=== PATIENT | male | born 2000 | race Caucasian/White ===

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

== ENCOUNTER 2022-08-15 09:30 | Emergency (ER) | payer OTHER, SELFPAY ==
[2022-08-15 09:41] VITALS: BP 147/87; PULSE 77; RESP 16; TEMP 36.3; O2SAT 98
--- NOTE | 2022-08-15 09:44 | ED.MALEGU ---
HPI - Male Genitourinary General Chief complaint: Urogenital-Male Stated complaint: Polyuria, dysuria, scant urination Time Seen by Provider: 08/15/22 10:00 Source: patient and RN notes reviewed Mode of arrival: ambulatory Limitations: no limitations History of Present Illness HPI Narrative: 21 year old male presents with concern for urinary frequency, dysuria, and decreased urine amount. He reports sweats. Denies chills, fever, abdominal pain, nausea, vomiting. Denies penile discharge, testicular redness, swelling, pain. He reports he is not sexually active. He denies back pain MD Complaint: dysuria Related Data Allergies Allergy/AdvReac Type Severity Reaction Status Date / Time No Known Allergies Allergy Mild Verified 08/15/22 09:40 Review of Systems Review of Systems: CONSTITUTIONAL: Denies malaise, chills,or fever. Reports sweats CARDIOVASCULAR: Denies chest pain, palpitations, or edema. RESPIRATORY: Denies cough or dyspnea. GASTROINTESTINAL: Denies abdominal pain, nausea, vomiting, diarrhea GENITOURINARY: Reports dysuria, frequency, decrease Nash. Denies urgency, suprapubic pressure. Denies flank pain or hematuria. SKIN: Denies rash or itching. MUSCULOSKELETAL: Denies back pain or myalgia. All systems reviewed & are unremarkable except as noted in HPI and below PMFSH Comments At time of signature, agree with nursing past medical, surgical, social and family history. There is no relevant family history pertinent to the presenting complaint Exam Narrative: GENERAL: Well-appearing, well-nourished, and in no acute distress. HEAD: Normocephalic. EYES: PERRLA, conjunctivae clear. NECK: Supple. No lymphadenopathy CHEST: Clear to auscultation. No respiratory distress. HEART: Regular rate and rhythm. ABDOMEN: Soft, nontender upon palpation, nondistended, normal active bowel sounds, no palpable or pulsatile masses, no guarding. No CVA tenderness SKIN: Warm, dry, no rash. NEURO: Alert and oriented x3. PSYCH: Normal mood and affect Course Course Emergency Course: Patient is aware of diagnosis, understands and agrees to treatment plan. Anticipatory guidance given. Patient agrees to follow-up as directed and is aware of reasons to seek care at the emergency department. Portions of this record may have been created with voice recognition software Level of Care: Express Care Visit Vital Signs Vital signs: Vital Signs Temperature 97.4 F L 08/15/22 09:41 Pulse Rate 77 08/15/22 09:41 Respiratory Rate 16 08/15/22 09:41 Blood Pressure 147/87 H 08/15/22 09:41 Pulse Oximetry 98 08/15/22 09:41 Oxygen Delivery Room Air 08/15/22 09:41 Temperature 97.4 F L 08/15/22 09:41 Pulse Rate 77 08/15/22 09:41 Respiratory Rate 16 08/15/22 09:41 Blood Pressure 147/87 H 08/15/22 09:41 Pulse Oximetry 98 08/15/22 09:41 Oxygen Delivery Room Air 08/15/22 09:41 Reviewed. MDM - Male Genitourinary MDM Narrative Medical decision making narrative: Exam findings and UA show no acute concerns or changes; patient is non-toxic appearing and is in no distress. Patient is appropriate for outpatient treatment and follow-up. Differential Diagnosis Differential diagnosis: Likely urinary tract infection, urethritis and prostatitis Critical Care Time Critical Care Time Critical Care Time: No Discharge Plan Discharge Clinical Impression: Dysuria Patient Disposition: Home, Self-Care Condition: Stable Instructions: Antibiotic Form, Dysuria (ED) Additional Instructions: We will send a urine culture to the lab; if the culture identifies an organism that the prescribed antibiotic will not treat, you will receive a phone call from an urgent care staff member and an appropriate antibiotic will be prescribed. -Your symptoms should begin to improve within a day of starting antibiotics. But you should finish all the antibiotic pills you get. Otherwise your infection might come back. -Also recommend: i
== END 2022-08-15 10:15 | disposition home or self-care (01) ==
PROVIDERS: Emergency Provider Nurse Practitioner; PCP Family Medicine
DX: R30.0 Dysuria (principal); R35.0 Frequency of micturition
CPT/HCPCS: 81003; 87086; 99213; G0463

== ENCOUNTER 2023-02-16 09:03 | Outpatient (CLI) | payer OTHER, SELFPAY ==
--- NOTE | ~2023-02-16 | CT_ITS ---
EXAMINATION: CT abdomen pelvis wo con DATE: 02/16/2023 09:29 INDICATION: Constipation, unspecified TECHNIQUE: Computed tomography (CT) of the abdomen and pelvis was performed without intravenous contr ast. The dose-length product (DLP) was 1360.63 mGy-cm. Automated exposure control and iterative recon struction technique were employed. COMPARISON: None FINDINGS: The lung bases are clear. The heart size is normal. The liver, spleen, pancreas, gallbladde r, and adrenal glands are normal. There is 1 mm nonobstructing stone of the right kidney. The left ki dney is unremarkable. No pathologically enlarged abdominal or pelvic lymph nodes are identified. No f ree intraperitoneal gas or evidence of bowel obstruction. The appendix is normal. A moderate volume o f colonic stool is present. There is a small umbilical hernia containing fat. A tiny supraumbilical h ernia containing fat is also noted. IMPRESSION: 1. Moderate volume of colonic stool. Reviewed, dictated and finalized at location B.
== END 2023-02-16 09:04 | disposition home or self-care (01) ==
PROVIDERS: PCP Family Medicine; Visit Provider Physician Assistant
DX: K59.00 Constipation, unspecified (principal); K62.5 Hemorrhage of anus and rectum; R10.31 Right lower quadrant pain; R10.9 Unspecified abdominal pain; R35.0 Frequency of micturition
CPT/HCPCS: 74176

== ENCOUNTER 2024-05-11 08:12 | Outpatient (CLI) | payer OTHER, SELFPAY ==
--- NOTE | ~2024-05-11 | US_ITS ---
Limited ABDOMINAL ULTRASOUND Ordering provider: Pete Mac PA-C History: . Elevated LFTs . Comparison: None. FINDINGS: LIVER: Normal size and increased echotexture suggestive of fat infiltration. No focal hepatic lesions or perihepatic fluid collections are identified. Normal flow of the portal vein. GALLBLADDER: Unremarkable. No evidence for stones, sludge, gallbladder wall thickening or pericholecy stic fluid collections. Wall thicknesses 0.2 cm. A negative sonographic Waller's sign was noted. BILIARY DUCTS: No evidence for intra or extrahepatic biliary dilation. Common bile duct measures 4 mm in diameter which is within normal limits. PANCREAS: Partially visualized. Otherwise, Normal echotexture and size. KIDNEYS: Right measures 10.2 cm in length. There is no evidence for hydronephrosis, solid renal mass, renal calculi or perinephric fluid collections. No renal cysts. UPPER ABDOMINAL AORTA: Normal in caliber. IVC: Patent. FREE FLUID: None. IMPRESSION: Fat infiltration of the liver. Otherwise, Unremarkable limited ultrasound of the abdomen. Reviewed, dictated and finalized at location A. T ADVOCATE IMPRESSION: Fat infiltration of the liver. Otherwise, Unremarkable limited ultrasound of th e abdomen.
== END 2024-05-11 08:13 | disposition home or self-care (01) ==
LOC: MICIMG 08:13
PROVIDERS: PCP Family Medicine; Visit Provider Physician Assistant
DX: R74.8 Abnormal levels of other serum enzymes (principal); K76.0 Fatty (change of) liver, not elsewhere classified
CPT/HCPCS: 76705